=== PATIENT | male | born 1950 | race Caucasian/White ===

== ENCOUNTER 2016-10-03 12:25 | Inpatient (IN) | payer OTHER ==
[~2016-10-03] VITALS: Ht 167.6 cm; Wt 70.5 kg
[2016-10-03 15:50] LABS: PLATELET COUNT 268 x10^3mcL (130-400)
[2016-10-03 15:51] LABS: RED CELL DISTRIBUTION WIDTH 18.7 % (11.5-14.5)
[2016-10-03 16:05] LABS: CARBON DIOXIDE 27.2 mmol/L (21-32); CHLORIDE SERUM 105 mmol/L (98-107); CREATININE SERUM 1.1 mg/dL (0.7-1.3); GFR1 > 60 mL/min; GLUCOSE SERUM 116 mg/dL (74-106); POTASSIUM SERUM 3.8 mmol/L (3.5-5.1); SODIUM SERUM 139 mmol/L (136-145)
[2016-10-03 16:08] LABS: CALCIUM 8.4 mg/dL (8.5-10.1)
[2016-10-03 16:14] LABS: ALT/SGPT 62 U/L (16-63); AST/SGOT 106 U/L (15-37); TOTAL PROTEIN, SERUM 7.6 g/dL (6.4-8.2)
[2016-10-03 16:16] LABS: BAND NEUTROPHIL 1 % (0-10); MONOCYTE 3 % (0-7); SEGMENTED NEUTROPHILS 81 % (37-75); rbc morphology (normal/abnorm) ABNORMAL (NORMAL); target cell (codocyte) 1+
[2016-10-03 16:17] LABS: ALBUMIN 1.8 g/dL (3.4-5.0); CK-MB < 0.5 ng/mL (0-3.6); CREATINE KINASE 46 U/L (39-308)
[2016-10-03 16:18] LABS: BILIRUBIN TOTAL 15.8 mg/dL (0.20-1.00)
[2016-10-03 17:00] LABS: ALKALINE PHOSPHATASE 1168 U/L (46-116)
[2016-10-03 20:00] VITALS: BP 123/72
[2016-10-03 20:03] LABS: MAGNESIUM 2.3 mg/dL (1.8-2.4); PHOSPHOROUS 3.2 mg/dL (2.5-4.9)
[2016-10-03 20:05] VITALS: Ht 167.6 cm; Wt 70.5 kg
[2016-10-03 20:13] LABS: FREE T4 1.26 ng/dL (0.76-1.46); FREE THYROXINE INDEX 2.3 ug/dL (1.4-4.5); T4(THYROXINE) 7.3 ug/dL (4.7-13.3)
[2016-10-03 20:38] LABS: T3 TOTAL 0.76 ng/mL
[2016-10-03 22:42] LABS: UA SPECIFIC GRAVITY 1.025 (1.005-1.035); microscopic required? YES; urine erythrocyte NEGATIVE (NEGATIVE)
[2016-10-03 22:54] LABS: AMPHETAMINE QUAL UR NONE DETECTED (NEG <=1000)
[2016-10-04 05:30] LABS: PLATELET COUNT 230 x10^3mcL (130-400)
[2016-10-04 05:38] LABS: CALCIUM 8.1 mg/dL (8.5-10.1); CARBON DIOXIDE 28.2 mmol/L (21-32); CHLORIDE SERUM 106 mmol/L (98-107); CREATININE SERUM 0.9 mg/dL (0.7-1.3); GFR1 > 60 mL/min; GLUCOSE SERUM 89 mg/dL (74-106); POTASSIUM SERUM 3.2 mmol/L (3.5-5.1); SODIUM SERUM 142 mmol/L (136-145)
[2016-10-04 05:46] LABS: RED CELL DISTRIBUTION WIDTH 18.8 % (11.5-14.5)
[2016-10-04 06:02] VITALS: BP 100/53
[2016-10-04 06:04] LABS: ATYPICAL LYMPH 5 %; BAND NEUTROPHIL 3 % (0-10); METAMYELOCTE 1 % (0-2); MONOCYTE 12 % (0-7); SEGMENTED NEUTROPHILS 65 % (37-75)
[2016-10-04 06:06] LABS: rbc morphology (normal/abnorm) ABNORMAL (NORMAL); target cell (codocyte) 1+
[2016-10-04 06:07] LABS: PLATELET MORPHOLOGY FEW LARGE PLATELETS
[2016-10-04 09:39] VITALS: BP 91/50
[2016-10-04 10:37] LABS: BILIRUBIN DIRECT 11.19 mg/dL (0.0-0.2)
[2016-10-04 13:48] VITALS: BP 98/56
[2016-10-04 21:59] VITALS: BP 98/56
[2016-10-05 06:03] VITALS: BP 109/59
[2016-10-05 06:16] LABS: CALCIUM 8.1 mg/dL (8.5-10.1); CARBON DIOXIDE 26.5 mmol/L (21-32); CHLORIDE SERUM 103 mmol/L (98-107); CREATININE SERUM 0.8 mg/dL (0.7-1.3); GFR1 > 60 mL/min; GLUCOSE SERUM 98 mg/dL (74-106); PHOSPHOROUS 4.2 mg/dL (2.5-4.9); POTASSIUM SERUM 3.4 mmol/L (3.5-5.1); SODIUM SERUM 139 mmol/L (136-145)
[2016-10-05 06:19] LABS: PLATELET COUNT 246 x10^3mcL (130-400)
[2016-10-05 08:02] LABS: RED CELL DISTRIBUTION WIDTH 18.5 % (11.5-14.5)
[2016-10-05 09:09] LABS: BILIRUBIN DIRECT 10.81 mg/dL (0.0-0.2); TOTAL PROTEIN, SERUM 7.1 g/dL (6.4-8.2)
[2016-10-05 09:15] LABS: ALBUMIN 1.7 g/dL (3.4-5.0)
[2016-10-05 09:22] LABS: BILIRUBIN TOTAL 12.86 mg/dL (0.20-1.00)
[2016-10-05 09:47] VITALS: BP 105/60
[2016-10-05 11:46] LABS: ATYPICAL LYMPH 1 %; BAND NEUTROPHIL 0 % (0-10); BASOPHIL 0 % (0-2); MONOCYTE 5 % (0-7); SEGMENTED NEUTROPHILS 82 % (37-75)
[2016-10-05 11:47] LABS: rbc morphology (normal/abnorm) ABNORMAL (NORMAL)
[2016-10-05 11:48] LABS: PLATELET MORPHOLOGY PLATELETS NORMAL; target cell (codocyte) 1+
[2016-10-05 14:55] VITALS: BP 92/55
[2016-10-05 21:28] VITALS: BP 95/54
[2016-10-06 05:14] VITALS: BP 100/56
[2016-10-06 06:14] LABS: CARBON DIOXIDE 31.2 mmol/L (21-32); CHLORIDE SERUM 101 mmol/L (98-107); CREATININE SERUM 1.1 mg/dL (0.7-1.3); GFR1 > 60 mL/min; GLUCOSE SERUM 136 mg/dL (74-106); MAGNESIUM 1.8 mg/dL (1.8-2.4); PHOSPHOROUS 4.5 mg/dL (2.5-4.9); POTASSIUM SERUM 3.3 mmol/L (3.5-5.1); SODIUM SERUM 140 mmol/L (136-145)
[2016-10-06 06:55] LABS: PLATELET COUNT 242 x10^3mcL (130-400); RED CELL DISTRIBUTION WIDTH 18.6 % (11.5-14.5)
[2016-10-06 09:15] VITALS: BP 96/55
[2016-10-06 09:42] LABS: BAND NEUTROPHIL 0 % (0-10); BASOPHIL 0 % (0-2); MONOCYTE 5 % (0-7); SEGMENTED NEUTROPHILS 81 % (37-75)
[2016-10-06 09:43] LABS: PLATELET MORPHOLOGY PLATELETS NORMAL
[2016-10-06 09:44] LABS: rbc morphology (normal/abnorm) ABNORMAL (NORMAL); target cell (codocyte) 1+
[2016-10-06 18:00] VITALS: BP 100/59
[2016-10-06 21:27] VITALS: BP 98/54
[2016-10-07 05:58] VITALS: BP 112/69
[2016-10-07 06:38] LABS: PLATELET COUNT 253 x10^3mcL (130-400)
[2016-10-07 06:48] LABS: RED CELL DISTRIBUTION WIDTH 18.5 % (11.5-14.5)
[2016-10-07 06:51] LABS: ALKALINE PHOSPHATASE 970 U/L (46-116); ALT/SGPT 52 U/L (16-63); AST/SGOT 98 U/L (15-37); BILIRUBIN TOTAL 11.2 mg/dL (0.20-1.00); CARBON DIOXIDE 34.1 mmol/L (21-32); CHLORIDE SERUM 102 mmol/L (98-107); CREATININE SERUM 0.9 mg/dL (0.7-1.3); GFR1 > 60 mL/min; GLUCOSE SERUM 104 mg/dL (74-106); PHOSPHOROUS 3.4 mg/dL (2.5-4.9); POTASSIUM SERUM 3.6 mmol/L (3.5-5.1); SODIUM SERUM 140 mmol/L (136-145); TOTAL PROTEIN, SERUM 7.1 g/dL (6.4-8.2)
[2016-10-07 07:22] LABS: ALBUMIN 1.7 g/dL (3.4-5.0)
[2016-10-07 09:14] LABS: ATYPICAL LYMPH 1 %; BAND NEUTROPHIL 0 % (0-10); BASOPHIL 0 % (0-2); MONOCYTE 3 % (0-7); PLATELET MORPHOLOGY PLATELETS NORMAL; SEGMENTED NEUTROPHILS 83 % (37-75); rbc morphology (normal/abnorm) ABNORMAL (NORMAL); target cell (codocyte) 1+
[2016-10-07 09:48] VITALS: BP 112/63
[2016-10-07 10:38] VITALS: BP 112/63
[2016-10-07] MEDS ORDERED: LEVOFLOXACIN750 M1 PO (14:23)
[2016-10-07] MEDS ORDERED: CLEOCIN HCL300 MG PO (14:24)
[2016-10-07] MEDS ORDERED: LAC PO (14:25)
[2016-10-07] MEDS ORDERED: ALD50 PO (14:27)
[2016-10-07] MEDS ORDERED: LASIX40 MG PO (14:28)
[2016-10-07] MEDS ORDERED: LACTULOSE10 GM/152 PO (14:57)
== END 2016-10-07 17:49 | DRG 423 ==
LOC: ED 12:25 → DU 17:57 → MU 17:57 → DU 19:35 → MU 10-05 14:46
PROVIDERS: Emergency Medicine; Family Medicine; Internal Medicine Gastroenterology; ADMIT Family Medicine
PROC: 0HBMXZZ Excision of Right Foot Skin, External Approach (ICD-10-PCS; 2016-10-04)
PROC: 0HBRXZZ Excision of Toe Nail, External Approach (ICD-10-PCS; 2016-10-04)
PROC: 0HBRXZZ Excision of Toe Nail, External Approach (ICD-10-PCS; 2016-10-04)
PROC: 0HBRXZZ Excision of Toe Nail, External Approach (ICD-10-PCS; 2016-10-04)
PROC: 0HBRXZZ Excision of Toe Nail, External Approach (ICD-10-PCS; 2016-10-04)
PROC: 0HBRXZZ Excision of Toe Nail, External Approach (ICD-10-PCS; 2016-10-04)
PROC: 0HBRXZZ Excision of Toe Nail, External Approach (ICD-10-PCS; 2016-10-04)
PROC: 0HBRXZZ Excision of Toe Nail, External Approach (ICD-10-PCS; 2016-10-04)
PROC: 0HBRXZZ Excision of Toe Nail, External Approach (ICD-10-PCS; 2016-10-04)
PROC: 0HBRXZZ Excision of Toe Nail, External Approach (ICD-10-PCS; 2016-10-04)
PROC: 0HBRXZZ Excision of Toe Nail, External Approach (ICD-10-PCS; 2016-10-04)
PROC: 0FC98ZZ Extirpation of Matter from Common Bile Duct, Via Natural or Artificial Opening Endoscopic (ICD-10-PCS; principal; 2016-10-05 13:30)
PROC: 0DB68ZX Excision of Stomach, Via Natural or Artificial Opening Endoscopic, Diagnostic (ICD-10-PCS; 2016-10-05 13:40)
DX: K80.71 Calculus of gallbladder and bile duct without cholecystitis with obstruction (principal); E43 Unspecified severe protein-calorie malnutrition; I85.10 Secondary esophageal varices without bleeding; L03.115 Cellulitis of right lower limb; N39.0 Urinary tract infection, site not specified; K76.6 Portal hypertension; K40.30 Unilateral inguinal hernia, with obstruction, without gangrene, not specified as recurrent; B96.1 Klebsiella pneumoniae [K. pneumoniae] as the cause of diseases classified elsewhere; I83.025 Varicose veins of left lower extremity with ulcer other part of foot; L97.521 Non-pressure chronic ulcer of other part of left foot limited to breakdown of skin; I83.015 Varicose veins of right lower extremity with ulcer other part of foot; L97.511 Non-pressure chronic ulcer of other part of right foot limited to breakdown of skin; B35.1 Tinea unguium; K70.30 Alcoholic cirrhosis of liver without ascites; F10.21 Alcohol dependence, in remission; K31.89 Other diseases of stomach and duodenum; K44.9 Diaphragmatic hernia without obstruction or gangrene; K57.10 Diverticulosis of small intestine without perforation or abscess without bleeding; K52.9 Noninfective gastroenteritis and colitis, unspecified; N43.2 Other hydrocele; D73.2 Chronic congestive splenomegaly; E78.5 Hyperlipidemia, unspecified; E03.9 Hypothyroidism, unspecified; Z68.24 Body mass index [BMI] 24.0-24.9, adult; Z87.891 Personal history of nicotine dependence; Z66 Do not resuscitate
CPT/HCPCS: 36600; 43235; 43262; 80307; 83880; 84439; C1769; G0480; J0696; J1610; J1940; J2175; J2250; J2704; J3010; J3430; J3490; J7030; J7120; Q0092; Q9966; Q9967

== ENCOUNTER 2016-11-20 14:19 | Inpatient (IN) | payer MEDICAID ==
[~2016-11-20] VITALS: Ht 165.1 cm; Wt 71.7 kg
[~2016-11-20 14:19] MED LIST: ALD50 PO; CLEOCIN HCL300 MG PO; LAC PO; LACTULOSE10 GM/152 PO; LASIX40 MG PO; LEVOFLOXACIN750 M1 PO
[2016-11-20 17:58] LABS: ALBUMIN 2.3 g/dL (3.4-5.0); ALKALINE PHOSPHATASE 526 U/L (46-116); ALT/SGPT 93 U/L (16-63); AST/SGOT 163 U/L (15-37); BILIRUBIN TOTAL 5.31 mg/dL (0.20-1.00); CALCIUM 7.5 mg/dL (8.5-10.1); CARBON DIOXIDE 21.9 mmol/L (21-32); CHLORIDE SERUM 112 mmol/L (98-107); CREATININE SERUM 1.4 mg/dL (0.7-1.3); GFR1 54 mL/min; GLUCOSE SERUM 158 mg/dL (74-106); SODIUM SERUM 145 mmol/L (136-145); TOTAL PROTEIN, SERUM 6.2 g/dL (6.4-8.2)
[2016-11-20 18:20] LABS: CK-MB < 0.5 ng/mL (0-3.6); CREATINE KINASE 204 U/L (39-308)
[2016-11-20 18:28] LABS: RED CELL DISTRIBUTION WIDTH 15.8 % (11.5-14.5)
[2016-11-20 19:48] LABS: ATYPICAL LYMPH 1 %; BAND NEUTROPHIL 23 % (0-10); BASOPHIL 0 % (0-2); METAMYELOCTE 3 % (0-2); MONOCYTE 11 % (0-7); SEGMENTED NEUTROPHILS 55 % (37-75)
[2016-11-20 21:21] LABS: microscopic required? YES; urine erythrocyte TRACE (NEGATIVE)
[2016-11-20 21:54] LABS: PLATELET COUNT 85 x10^3mcL (130-400)
[2016-11-20 23:04] LABS: AMPHETAMINE QUAL UR NONE DETECTED (NEG <=1000)
[2016-11-21 01:06] LABS: MAGNESIUM 1.3 mg/dL (1.8-2.4); PHOSPHOROUS 2.7 mg/dL (2.5-4.9)
[2016-11-21 01:08] LABS: CHOLESTEROL/HDL RATIO 2.5
[2016-11-21 01:16] LABS: FREE T4 1.04 ng/dL (0.76-1.46); FREE THYROXINE INDEX 2.2 ug/dL (1.4-4.5); T4(THYROXINE) 6.4 ug/dL (4.7-13.3)
[2016-11-21 02:26] LABS: T3 TOTAL 0.82 ng/mL
[2016-11-21 05:26] LABS: BASOPHIL % 0.1 % (0-2)
[2016-11-21 05:28] LABS: CALCIUM 8.4 mg/dL (8.5-10.1); CREATININE SERUM 1.3 mg/dL (0.7-1.3); MAGNESIUM 1.5 mg/dL (1.8-2.4); PHOSPHOROUS 4.2 mg/dL (2.5-4.9); PLATELET COUNT 79 x10^3mcL (130-400); POTASSIUM SERUM 4.5 mmol/L (3.5-5.1); RED CELL DISTRIBUTION WIDTH 15.6 % (11.5-14.5)
[2016-11-21 13:22] VITALS: BP 102/69
[2016-11-21 13:50] VITALS: BP 102/69
[2016-11-21 17:57] VITALS: BP 100/64
[2016-11-21 22:12] VITALS: BP 111/68
[2016-11-22 06:28] VITALS: BP 115/60
[2016-11-22 06:54] LABS: CALCIUM 8.2 mg/dL (8.5-10.1); CARBON DIOXIDE 21.6 mmol/L (21-32); CHLORIDE SERUM 112 mmol/L (98-107); CREATININE SERUM 0.8 mg/dL (0.7-1.3); GFR1 > 60 mL/min; GLUCOSE SERUM 87 mg/dL (74-106); POTASSIUM SERUM 3.7 mmol/L (3.5-5.1); SODIUM SERUM 145 mmol/L (136-145)
[2016-11-22 07:49] VITALS: BP 115/64
[2016-11-22 08:08] LABS: BASOPHIL % 0.3 % (0-2)
[2016-11-22 08:10] LABS: PLATELET COUNT 67 x10^3mcL (130-400); RED CELL DISTRIBUTION WIDTH 16.4 % (11.5-14.5)
[2016-11-22 11:45] VITALS: BP 102/54
[2016-11-22 17:13] VITALS: BP 115/74
[2016-11-22 21:53] VITALS: BP 113/58
[2016-11-23 05:47] VITALS: BP 120/67
[2016-11-23 06:12] LABS: ALKALINE PHOSPHATASE 445 U/L (46-116); ALT/SGPT 72 U/L (16-63); AST/SGOT 85 U/L (15-37); BILIRUBIN DIRECT 3.94 mg/dL (0.0-0.2); BILIRUBIN TOTAL 4.6 mg/dL (0.20-1.00); CALCIUM 8.4 mg/dL (8.5-10.1); CARBON DIOXIDE 25.5 mmol/L (21-32); CHLORIDE SERUM 109 mmol/L (98-107); CREATININE SERUM 0.8 mg/dL (0.7-1.3); GFR1 > 60 mL/min; GLUCOSE SERUM 105 mg/dL (74-106); POTASSIUM SERUM 3.6 mmol/L (3.5-5.1); SODIUM SERUM 143 mmol/L (136-145); TOTAL PROTEIN, SERUM 6.6 g/dL (6.4-8.2)
[2016-11-23 06:49] LABS: PLATELET COUNT 74 x10^3mcL (130-400); RED CELL DISTRIBUTION WIDTH 15.6 % (11.5-14.5)
[2016-11-23 08:56] VITALS: BP 110/59
[2016-11-23 10:39] LABS: BAND NEUTROPHIL 14 % (0-10); BASOPHIL 0 % (0-2); MONOCYTE 3 % (0-7); SEGMENTED NEUTROPHILS 67 % (37-75)
[2016-11-23 10:40] LABS: PLATELET MORPHOLOGY PLATELETS DECREASED; rbc morphology (normal/abnorm) ABNORMAL (NORMAL)
[2016-11-23 13:32] VITALS: BP 112/62
[2016-11-23 20:32] VITALS: BP 118/65
[2016-11-24 05:23] VITALS: BP 115/65
[2016-11-24 06:34] LABS: BASOPHIL % 0.3 % (0-2)
[2016-11-24 06:47] LABS: PLATELET COUNT 93 x10^3mcL (130-400); RED CELL DISTRIBUTION WIDTH 15.9 % (11.5-14.5)
[2016-11-24 06:48] LABS: CALCIUM 8.5 mg/dL (8.5-10.1); CARBON DIOXIDE 26.9 mmol/L (21-32); CHLORIDE SERUM 108 mmol/L (98-107); CREATININE SERUM 0.8 mg/dL (0.7-1.3); GFR1 > 60 mL/min; GLUCOSE SERUM 92 mg/dL (74-106); POTASSIUM SERUM 3.6 mmol/L (3.5-5.1); SODIUM SERUM 143 mmol/L (136-145)
[2016-11-24 10:10] VITALS: BP 117/67
[2016-11-24 10:50] VITALS: BP 130/78
[2016-11-24 17:21] VITALS: BP 100/64
[2016-11-24 21:33] VITALS: BP 110/63
[2016-11-25 05:52] VITALS: BP 97/55
[2016-11-25 06:58] LABS: BASOPHIL % 0.3 % (0-2)
[2016-11-25 07:01] LABS: PLATELET COUNT 111 x10^3mcL (130-400); RED CELL DISTRIBUTION WIDTH 15.8 % (11.5-14.5)
[2016-11-25 07:13] LABS: CALCIUM 8.3 mg/dL (8.5-10.1); CARBON DIOXIDE 30.7 mmol/L (21-32); CHLORIDE SERUM 104 mmol/L (98-107); CREATININE SERUM 0.9 mg/dL (0.7-1.3); GFR1 > 60 mL/min; GLUCOSE SERUM 136 mg/dL (74-106); POTASSIUM SERUM 3.6 mmol/L (3.5-5.1); SODIUM SERUM 140 mmol/L (136-145)
[2016-11-25 09:17] VITALS: BP 109/62
[2016-11-25 09:36] LABS: BILIRUBIN DIRECT 2.52 mg/dL (0.0-0.2); BILIRUBIN TOTAL 3.2 mg/dL (0.20-1.00); TOTAL PROTEIN, SERUM 6.9 g/dL (6.4-8.2)
[2016-11-25 09:37] LABS: ALBUMIN 2.1 g/dL (3.4-5.0)
[2016-11-25 10:23] VITALS: BP 109/62
[2016-11-25 12:25] VITALS: BP 99/60
[2016-11-25] MEDS ORDERED: PRI20 PO ×3 (15:29→16:25)
[2016-11-25] MEDS ORDERED: MOT600 PO ×2 (15:29→16:24)
[2016-11-25] MEDS ORDERED: ALD50 PO (16:25)
[2016-11-25] MEDS ORDERED: LASIX20 MG PO (16:25)
== END 2016-11-25 17:53 | disposition home or self-care (01) | DRG 710 ==
LOC: ED 14:19 → DU 11-21 09:00 → MU 11-21 09:00 → DU 11-21 13:01 → MU 11-22 06:02
PROVIDERS: Emergency Medicine; Family Medicine; Internal Medicine Gastroenterology; ADMIT Family Medicine
PROC: 0FC98ZZ Extirpation of Matter from Common Bile Duct, Via Natural or Artificial Opening Endoscopic (ICD-10-PCS; principal; 2016-11-22 08:30)
PROC: 0F798ZZ Dilation of Common Bile Duct, Via Natural or Artificial Opening Endoscopic (ICD-10-PCS; 2016-11-22 08:30)
PROC: 0WJG4ZZ Inspection of Peritoneal Cavity, Percutaneous Endoscopic Approach (ICD-10-PCS; 2016-11-24)
DX: A41.9 Sepsis, unspecified organism (principal); N17.0 Acute kidney failure with tubular necrosis; I50.43 Acute on chronic combined systolic (congestive) and diastolic (congestive) heart failure; E43 Unspecified severe protein-calorie malnutrition; J18.9 Pneumonia, unspecified organism; D69.59 Other secondary thrombocytopenia; K76.6 Portal hypertension; A41.51 Sepsis due to Escherichia coli [E. coli]; A41.81 Sepsis due to Enterococcus; R65.20 Severe sepsis without septic shock; K80.50 Calculus of bile duct without cholangitis or cholecystitis without obstruction; N30.91 Cystitis, unspecified with hematuria; K70.31 Alcoholic cirrhosis of liver with ascites; K31.89 Other diseases of stomach and duodenum; F10.20 Alcohol dependence, uncomplicated; F43.21 Adjustment disorder with depressed mood; K57.30 Diverticulosis of large intestine without perforation or abscess without bleeding; E83.42 Hypomagnesemia; E83.51 Hypocalcemia; K40.30 Unilateral inguinal hernia, with obstruction, without gangrene, not specified as recurrent; I86.1 Scrotal varices; E87.6 Hypokalemia; Z68.26 Body mass index [BMI] 26.0-26.9, adult; Z87.891 Personal history of nicotine dependence
CPT/HCPCS: 43260; 78226; 80307; 83880; 84439; 94150; A9537; C1769; G0480; J0295; J0330; J0696; J1170; J1610; J1940; J1956; J2405; J2704; J2710; J3010; J3475; J3480; J3490; J7030; J7050; J7120; J7620; P9035; Q0092; Q0163; Q9967